=== PATIENT | male | born 1995 | race American Indian/Alaskan Native ===

== ENCOUNTER 2019-01-24 18:28 | Emergency (ER) | payer SELFPAY ==
[2019-01-24 18:31] VITALS: BP 125/57
[2019-01-24] MEDS ORDERED: IBUPROFEN PO ONE ×2 (18:56→18:59)
--- NOTE | 2019-01-24 18:56 | Emergency Department Report ---
Blank Doc - Documentation Documentation: This is a 23-year-old male that presents with left middle finger pain with some deformity noted. This initial assessment/diagnostic orders/clinical plan/treatment(s) is/are subject to change based on patient's health status, clinical progression and re- assessment by fellow clinical providers in the ED. Further treatment and workup at subsequent clinical providers discretion. Patient/guardians urged not to elope from the ED as their condition may be serious if not clinically assessed and managed. Initial orders include: 1- Patient sent to [facility] for further evaluation and treatment 2- xray
--- NOTE | 2019-01-24 19:25 | XRay Report ---
LEFT HAND 3 VIEWS INDICATION / CLINICAL INFORMATION: Jammed third finger in bathroom door with pain and deformity. COMPARISON: None available. FINDINGS: BONES / JOINT(S): The PIP joint of the middle finger is flexed and the DIP joint of the middle finger is extended suggestive of tendinous injury. I see no evidence of fracture or dislocation. The other fingers are unremarkable. SOFT TISSUES: No significant abnormality. ADDITIONAL FINDINGS: None. Signer Name: Karlos Roberts MD Signed: 01/24/2019 7:21 PM Workstation Name: [id number]
--- NOTE | 2019-01-24 20:56 | Emergency Department Report ---
ED Back Pain/Injury HPI - General Chief Complaint: Extremity Injury, Upper Stated Complaint: LFT HAND INJURY/PAIN Time Seen by Provider: 01/24/19 18:54 Source: patient, EMS Limitations: No Limitations - History of Present Illness Initial Comments: 23 YO WITH PREVIOUS INJURY TO THE SAME FINGER. HIT HIS MIDDLE FINGER ON LAT SURFACE TODAY AT WORK. COMES IN WITH PAIN AND SWAN APPEARANCE OF FINGER. RAPID CAP REFILL. CAN STRAIGHTEN. NO LAC OR ABRASION - Related Data Previous Rx's Medication Instructions Recorded Last Taken Type Cyclobenzaprine [Flexeril] 10 mg PO TID PRN #30 tablet 06/16/15 Unknown Rx HYDROcodone/APAP 10-325 [[place] 1 each PO Q6HR PRN #20 tablet 06/16/15 Unknown Rx 10/325] Naproxen [Naprosyn TAB] 500 mg PO BID PRN #30 tablet 06/16/15 Unknown Rx Allergies Allergy/AdvReac Type Severity Reaction Status Date / Time No Known Allergies Allergy Unverified 05/30/13 14:18 ED Review of Systems ROS: Stated complaint: LFT HAND INJURY/PAIN Other details as noted in HPI Comment: All other systems reviewed and negative ED Past Medical Hx - Past Medical History Medical history: no medical history Surgical history: no surgical history ED Back Pain Physical Exam - Exam General: Vital signs noted. No distress. Alert and acting appropriately. Back/Abdomen: No Abdominal Tenderness, No Perithoracic Tenderness Neuro: Yes Normal Sensation, Yes Normal DTR's, Yes Normal Gait, No Motor Weakness ED Course Vital Signs 01/24/19 01/24/19 18:31 18:55 Temperature 97.8 F 97.8 F Pulse Rate 55 L 55 L Respiratory 16 18 Rate Blood Pressure 125/57 Blood Pressure 125/57 [Right] O2 Sat by Pulse 100 100 Oximetry Ed Back Pain Tests - Tests Tests: Abnormal UA ED Medical Decision Making - Radiology Data Radiology results: report reviewed, image reviewed - Medical Decision Making PREVIOUS INJURY XRAY SUGGEST LIGAMENT INJURY FINGER SPLINT DC HOME WITH ORTHO FOLLOW UP NEUROVASC INTACT RAPID CAP REFILL SENSATION IN PLACED - Differential Diagnosis ro fx or dislocation Critical care attestation.: If time is entered above; I have spent that time in minutes in the direct care of this critically ill patient, excluding procedure time. ED Disposition Clinical Impression: Finger injury Disposition: DC-01 TO HOME OR SELFCARE Is pt being admited?: No Does the pt Need Aspirin: No Condition: Stable Instructions: Finger Sprain (ED) Additional Instructions: SPLINT- MAY TAKE OFF AT NIGHT FOLLOW UP WITH LUNA HARDING MD REFERRAL BELOW ICE MOTRIN FOR INFLAMMATION Referrals: OSWALDO MENDOSA MD [Staff Physician] - 3-5 Days Time of Disposition: 20:55
== END 2019-01-24 21:55 | disposition home or self-care (01) ==
LOC: ED 18:28
DX: S69.92XA Unspecified injury of left wrist, hand and finger(s), initial encounter (principal); X58.XXXA Exposure to other specified factors, initial encounter; Y93.9 Activity, unspecified; Y92.89 Other specified places as the place of occurrence of the external cause; Y99.8 Other external cause status